=== PATIENT | female | born 1960 | race Caucasian/White ===

== ENCOUNTER 2021-11-23 19:41 | Emergency (ER) | payer BC ==
[2021-11-23 20:13] VITALS: BP 122/70; PULSE 111
[2021-11-23] MEDS ORDERED: Lactated Ringers 1,000 ML IV ONE (20:49)
[2021-11-23] MEDS ORDERED: diphenhydrAMINE 50 MG/ML SDV IVPUSH ONE (20:49)
[2021-11-23] MEDS ORDERED: Ketorolac 15 MG/ML SDV IVPUSH ONE (20:49)
[2021-11-23] MEDS ORDERED: Metoclopramide 10 MG/2 ML SDV IVPUSH ONE (20:49)
== END 2021-11-24 00:17 | disposition home or self-care (01) ==
LOC: JD.ED 19:41
DX: K74.60 Unspecified cirrhosis of liver (principal); J90 Pleural effusion, not elsewhere classified; I31.3 Pericardial effusion (noninflammatory); D72.829 Elevated white blood cell count, unspecified; F17.210 Nicotine dependence, cigarettes, uncomplicated; E66.9 Obesity, unspecified; Z68.30 Body mass index [BMI] 30.0-30.9, adult; Z88.5 Allergy status to narcotic agent; Z79.82 Long term (current) use of aspirin; Z20.822 Contact with and (suspected) exposure to COVID-19
CPT/HCPCS: 36415; 71045; 74176; 80053; 81001; 83605; 83735; 84443; 85025; 86140; 86430; 87040; 87635; 96374; 96375; 99284; J1200; J1885; J2765; J7120; U0002